=== PATIENT | female | born 1960 | race Two or more races ===

== ENCOUNTER → 2016-08-07 | Outpatient (CLI) | payer MEDICAID | LOC: FIMAGING 09:56 | DX: Z12.39 Encounter for other screening for malignant neoplasm of breast (principal); R92.2 Inconclusive mammogram | CPT/HCPCS: G0206 ==

== ENCOUNTER → 2017-02-27 | Outpatient (CLI) | payer MEDICAID | LOC: FIMAGING 12:29 | DX: Z12.31 Encounter for screening mammogram for malignant neoplasm of breast (principal) | CPT/HCPCS: G0202 ==

== ENCOUNTER → 2018-04-13 | Outpatient (CLI) | payer MEDICAID | LOC: FIMAGING 08:48 | PROVIDERS: ATTEND Nurse Practitioner Family | DX: Z12.31 Encounter for screening mammogram for malignant neoplasm of breast (principal) ==